=== PATIENT | male | born 1980 | race Hispanic/Latino ===

== ENCOUNTER 2018-07-03 17:37 | Emergency (ER) | payer MEDICAID ==
[2018-07-03 17:40] VITALS: BMI 34.8
[2018-07-03 17:45] VITALS: BP 158/98; PULSE 99; RESP 18; TEMP 98.8; O2SAT 98
[2018-07-03] MEDS ORDERED: Oxycodone/Acetaminophen 5/325 mg Tab PO STA (18:30)
--- NOTE | 2018-07-03 18:33 | C.PDOC ---
History Of Present Illness 38 y/o male presents to the ER complaining of pain to left lower 2nd molar which has been present for the past 2 days. Patient states that he cracked his tooth while eating a few months ago, however he started feeling pain 2 days ago. Denies having headache, fever, and chills. Time Seen by Provider: 07/03/18 18:13 Chief Complaint (Nursing): Dental Pain History Per: Patient History/Exam Limitations: no limitations Onset/Duration Of Symptoms: Days Current Symptoms Are (Timing): Still Present Severity: Moderate Past Medical History Reviewed: Historical Data, Nursing Documentation, Vital Signs Vital Signs: Last Vital Signs Temp 98.8 F 07/03/18 17:42 Pulse 99 H 07/03/18 17:42 Resp 18 07/03/18 17:42 BP 158/98 H 07/03/18 17:42 Pulse Ox 98 07/03/18 17:42 - Medical History PMH: No Chronic Diseases Other Surgeries: Hx of surgeries Family History: States: No Known Family Hx - Social History Hx Alcohol Use: No Hx Substance Use: No (denied) - Immunization History Hx Tetanus Toxoid Vaccination: No Hx Influenza Vaccination: No Hx Pneumococcal Vaccination: No Review Of Systems Except As Marked, All Systems Reviewed And Found Negative. Constitutional: Negative for: Fever, Chills ENT: Positive for: Mouth Pain Physical Exam - Physical Exam Appears: Other (uncomfortable, restless) Skin: Normal Color, Warm, Dry Head: Atraumatic, Normacephalic, No Swelling (facial swelling) Eye(s): bilateral: Normal Inspection Nose: Normal Oral Mucosa: Moist Teeth: Caries (large caries), No Tender To Palpation Gingiva: Normal Appearing, No Tender, No Abscess Neck: Supple Chest: Symmetrical Neurological/Psych: Oriented x3, Normal Speech ED Course And Treatment O2 Sat by Pulse Oximetry: 98 (RA) Pulse Ox Interpretation: Normal Progress Note: Patient treated with Motrin PO, Perocet PO, and Penicillin VK. Patient has been discharged with prescriptions for Penicillin VK, Motrin, and Tramadol. he has been instructed to follow up with dentist as soon as possible. Disposition - Disposition Disposition: HOME/ ROUTINE Disposition Time: 18:32 Condition: STABLE Additional Instructions: Follow up with Dentist CARISSA. Return to ED if feel worse. Prescriptions: Ibuprofen [Motrin Tab] 600 mg PO Q8 #30 tab Penicillin VK [Penicillin VK Tab] 500 mg PO Q6 #28 tab traMADol [Ultram] 50 mg PO Q6 #20 tab Instructions: Dental Pain (DC) Forms: [employer] (Arabic) - Clinical Impression Clinical Impression: Pain, dental - PA / [employer] / Resident Statement MD/DO has reviewed & agrees with the documentation as recorded. - Scribe Statement The provider has reviewed the documentation as recorded by the Normaibe Melissa Melendez Provider Attestation All medical record entries made by the Normaibe were at my direction and personally dictated by me. I have reviewed the chart and agree that the record a ccurately reflects my personal performance of the history, physical exam, medical decision making, and the department course for this patient. I have also personally directed, reviewed, and agree with the discharge instructions and disposition.
[2018-07-03] MEDS ORDERED: Oxycodone/Acetaminophen 5/325 mg Tab ONE (18:40)
== END 2018-07-03 18:46 | disposition home or self-care (01) ==
LOC: C.ER 17:37
DX: K08.89 Other specified disorders of teeth and supporting structures (principal)